=== PATIENT | female | born 1995 | race Caucasian/White ===

== ENCOUNTER 2017-05-04 08:41 | Day surgery (SDC) | payer MEDICAID ==
[~2017-05-04] VITALS: Ht 175.3 cm; Wt 85.0 kg
[~2017-05-04 08:41] MED LIST: BUPIVACAINE/PF 0.25% ONE
[2017-05-04] MEDS ORDERED: FENTANYL PF 250 MCG/5ML ONE (09:32)
[2017-05-04] MEDS ORDERED: MIDAZOLAM 1 MG/ML, 2ML ONE (09:32)
[2017-05-04 10:01] LABS: HCG UR OBC PASS
[2017-05-04] MEDS ORDERED: LACTATED RINGERS 1,000 ML IV SCH (10:17)
[2017-05-04] MEDS ORDERED: NONE PER PT (10:17)
[2017-05-04 10:18] VITALS: BP 131/86
[2017-05-04] MEDS ORDERED: SILVER NITRATE STICK TP ONE (10:42)
[2017-05-04] MEDS ORDERED: ONDANSETRON 2MG/ML, 2ML ONE (10:50)
[2017-05-04] MEDS ORDERED: DEXAMETHASONE 4 MG/ML, 1ML ONE (10:50)
[2017-05-04] MEDS ORDERED: PROPOFOL 10 MG/ML, 20ML ONE (10:50)
[2017-05-04] MEDS ORDERED: KETOROLAC 30 MG/1 ML ONE (10:50)
[2017-05-04] MEDS ORDERED: CEFAZOLIN 1,000 MG ONE (10:50)
[2017-05-04] MEDS ORDERED: ACETAMINOPHEN 325 MG TABLET PO PRN (11:00)
[2017-05-04] MEDS ORDERED: HYDROmorphone 1 MG/ML, 1ML IV PRN (11:00)
[2017-05-04] MEDS ORDERED: OXYcodone 5 MG/5 ML ORAL.SOL UDC PO PRN (11:00)
[2017-05-04] MEDS ORDERED: METOCLOPRAMIDE 5 MG/ML, 2ML IV PRN (11:00)
[2017-05-04] MEDS ORDERED: MEPERIDINE/PF 25MG/0.5ML IVPush PRN (11:00)
[2017-05-04] MEDS ORDERED: ONDANSETRON 2MG/ML, 2ML IVPush PRN (11:00)
[2017-05-04] MEDS ORDERED: PROMETHAZINE 25 MG/ML, 1ML IV PRN (11:00)
[2017-05-04] MEDS ORDERED: OXYcodone 5 MG/5 ML ORAL.SOL UDC ONE (11:39)
[2017-05-04] MEDS ORDERED: FENTANYL PF 100 MCG/2ML ONE (11:42)
[2017-05-04] MEDS: FENTANYL PF 100 MCG/2ML IV PRN ×2 (11:44→11:56)
== END 2017-05-04 13:00 ==
LOC: OUT 08:41
PROVIDERS: ATTEND Obstetrics & Gynecology
DX: N93.8 Other specified abnormal uterine and vaginal bleeding (principal); N84.0 Polyp of corpus uteri
CPT/HCPCS: 36415; 58563; 81001; 81025; 85025; 87086; 88305; J0690; J1100; J1885; J2250; J2405; J2704; J3010; J3490; J7120